=== PATIENT | female | born 1970 | race Caucasian/White ===

== ENCOUNTER → 2017-04-24 | Outpatient (CLI) | payer OTHER ==
--- NOTE | 2017-04-24 19:32 | REP ---
REASON FOR EXAM: Status-post fall 03/03 with popping sensation with pain and swelling. COMPARISON: None. The anterior and posterior horns of the medial meniscus are within normal limits. The anterior and posterior horns of the lateral meniscus are within normal limits. The anterior and posterior cruciate ligaments are intact. The quadriceps and patellar tendons are intact. There is thickening and T2 hypersignal seen involving the superior fibers of the medial collateral ligament. There is a slight gap between the medial collateral ligament and medial meniscus with mild T2 hypersignal seen filling that gap. The lateral collateral ligament is intact. The medial and lateral patellar retinacula are intact. There is mild thinning of all articular cartilages which appear rather smooth. There is no janet joint effusion. There is a small Bakers cyst. There is mild patchy T2 hypersignal seen in the lateral femoral condyle and proximal lateral tibial metaphysis. IMPRESSION: 1. There is medial collateral ligamentous sprain with medial meniscocapsular separation. 2. There is mild femoral and tibial marrow edema likely secondary to trauma. 3. There is a small Laguerre's cyst. Signed by Hitesh Magaña DO 04/24/2017 07:40 P
== END ==
LOC: M RAD 16:12
PROVIDERS: ATTEND Orthopaedic Surgery
DX: M25.562 Pain in left knee (principal)

== ENCOUNTER → 2019-03-08 | Outpatient (REF) | payer OTHER | LOC: M SFHCLERA 14:04 | PROVIDERS: ATTEND Physician Assistant | DX: R05 Cough (principal) ==

== ENCOUNTER → 2022-01-06 | Outpatient (CLI) | payer OTHER | LOC: M RAD 09:21 | PROVIDERS: ATTEND Nurse Practitioner Family | DX: Z12.2 Encounter for screening for malignant neoplasm of respiratory organs (principal); Z87.891 Personal history of nicotine dependence ==

== ENCOUNTER → 2022-07-16 | Outpatient (CLI) | payer OTHER ==
[~2022-07-16] MED LIST: ISOVUE-370 76% 100ML VIAL As Ordered ONE
== END ==
LOC: M RAD 09:49
PROVIDERS: ATTEND Nurse Practitioner Family
DX: R06.02 Shortness of breath (principal)
CPT/HCPCS: 71275; Q9967

== ENCOUNTER → 2022-09-12 | Outpatient (CLI) | payer OTHER | LOC: M CARPUL 09:18 | PROVIDERS: ATTEND Nurse Practitioner Family | DX: R06.00 Dyspnea, unspecified (principal) ==

== ENCOUNTER → 2025-01-03 | Outpatient (CLI) | payer OTHER ==
[2025-01-04 12:47] LABS: HERPES ZOSTER, VARICELLA IgG 4.99 S/CO (>=1.00); RUBEOLA IgG ANTIBODY 42.4 AU/mL (>16.49)
== END ==
LOC: M LAB 13:58
PROVIDERS: ATTEND Family Medicine
DX: Z02.1 Encounter for pre-employment examination (principal)